=== PATIENT | male | born 1990 ===

== ENCOUNTER 2017-09-27 22:33 | Emergency (ER) | payer SELFPAY ==
[2017-09-27] MEDS ORDERED: HYDROcodone/Acetaminophen 5/325 mg Tablet ONE (23:48)
[2017-09-27] MEDS ORDERED: Naproxen 500 MG TAB ONE (23:48)
== END 2017-09-27 23:52 | disposition home or self-care (01) ==
LOC: ERS 22:33
DX: R51 Headache (principal); M79.642 Pain in left hand; S01.01XD Laceration without foreign body of scalp, subsequent encounter; Z79.891 Long term (current) use of opiate analgesic; Z79.899 Other long term (current) drug therapy
CPT/HCPCS: 99284